=== PATIENT | male | born 1970 | race Two or more races ===

== ENCOUNTER 2020-12-15 23:37 | Inpatient (IN) | payer SELFPAY ==
[~2020-12-15] VITALS: Ht 167.6 cm; Wt 80.9 kg
[2020-12-16] MEDS ORDERED: ONDANSETRON HCL 4MG/2ML INJ IV STA (00:11)
[2020-12-16] MEDS ORDERED: SODIUM CHLORIDE 0.9% 1,000 ML IV ONE (00:15)
[2020-12-16 00:28] LABS: HEMOGLOBIN. 15.6 g/dL (14.0-18.0); MEAN CORPUSCULAR VOLUME 96.5 fL (80.0-94.0); MEAN PLATELET VOLUME 7.1 fl (7.4-10.4); PLATELET 280 x1000/uL (130-400); RED BLOOD CELL COUNT 4.86 mill/uL (4.7-6.1); RED CELL DISTRIBUTION WIDTH 13.1 % (11.6-14.6)
[2020-12-16 00:35] LABS: PROTHROMBIN TIME 10.7 sec (9.6-11.0)
[2020-12-16 00:40] LABS: CHLORIDE 109 mEq/L (98-107)
[2020-12-16 00:44] LABS: ETHANOL BLOOD < 10 mg/dL
[2020-12-16 00:48] LABS: BG BASE EXCESS -11.1 mmol/L (-2.0-2.0); BG CARBOXYHEMOGLOBIN 0.4 % (0.5-1.5); BG DEOXYHEMOGLOBIN 15.9 % (0.0-5.0); BG FRACTION INSPIRED OXYGEN 44; BG HCO3 ACT 20.3 mmol/L (22.0-26.0); BG METHEMOGLOBIN 0.4 % (0.0-1.5); BG OXYHEMOGLOBIN 83.3 % (94.0-97.0); BG PCO2 69.9 mmHg (35.0-45.0); BG PH 7.081 (7.350-7.450); BG SAMPLE SITE RIGHT RADIAL; BG TOTAL HEMOGLOBIN 16.5 g/dL (12.0-18.0); BG VENT MODE NASAL CANNULA
[2020-12-16] MEDS ORDERED: NALOXONE HCL 1 MG/ML 2ML VIAL IV ONE (01:00)
[2020-12-16 01:10] LABS: CLARITY URINE CLEAR (CLEAR); COLOR URINE YELLOW (YELLOW); KETONES URINE NEGATIVE (NEGATIVE); LEUKOCYTE ESTERASE URINE NEGATIVE (NEGATIVE); NITRITE URINE NEGATIVE (NEGATIVE); OCCULT BLOOD URINE 1+ (NEGATIVE); PH URINE 6.5 (4.5-8.0); PROTEIN URINE 2+ (NEGATIVE); SPECIFIC GRAVITY URINE 1.016 (1.005-1.030); UROBILINOGEN URINE 0.2 E.U./dL (0.2-1.0)
[2020-12-16 01:23] LABS: *AMPHETAMINES SCREEN URINE PRESUMTIVE POSITIVE (NEGATIVE); *BARBITURATES SCREEN URINE NEGATIVE (NEGATIVE); *BENZODIAZEPINES SCREEN URINE NEGATIVE (NEGATIVE); *COCAINE SCREEN URINE NEGATIVE (NEGATIVE)
[2020-12-16 01:24] LABS: CANNABINOID URINE SCREEN NEGATIVE (NEGATIVE); METHADONE URINE SCREEN NEGATIVE (NEGATIVE); OPIATES URINE SCREEN NEGATIVE (NEGATIVE); PHENCYCLIDINE URINE SCREEN NEGATIVE (NEGATIVE)
[2020-12-16 04:14] LABS: PLATELET ESTIMATE NORMAL
[2020-12-16] MEDS ORDERED: ACETAMINOPHEN 325MG TABLET PO PRN ×2 (07:15)
[2020-12-16] MEDS ORDERED: MAGNESIUM/ALUMINUM HYDROXIDE/SIMETHICONE 30ML UDC PO PRN (07:15)
[2020-12-16] MEDS ORDERED: ACETAMINOPHEN 650MG SUPP PR PRN ×2 (07:15)
[2020-12-16] MEDS ORDERED: ACETAMINOPHEN 650MG/20.3ML UDC GT PRN ×2 (07:15)
[2020-12-16] MEDS ORDERED: CLONIDINE 0.1MG TABLET PO PRN (07:15)
[2020-12-16] MEDS ORDERED: GUAIFENESIN 200MG/10ML SUGAR FREE UDC PO PRN (07:15)
[2020-12-16] MEDS ORDERED: NA PHOS,M-B/NA PHOS,DI-BA ENEMA 118ML PR PRN (07:15)
[2020-12-16] MEDS ORDERED: IPRATROPIUM/ALBUTEROL 0.5-3(2.5)MG/3ML NEB HHN PRN (07:15)
[2020-12-16] MEDS ORDERED: DEXTROSE 50% WATER 50ML SYRINGE IV PRN (07:30)
[2020-12-16 08:00] VITALS: BP 100/70
[2020-12-16] MEDS: BLOOD SUGAR DIAGNOSTIC STRIP TEST SCH ×4 (08:01→21:00)
[2020-12-16] MEDS: INSULIN LISPRO 100 UNITS/ML SUBCUT SCH ×4 (08:01→21:00)
[2020-12-16] MEDS ORDERED: VANCOMYCIN 1 G PREMIX 200 ML IV SCH (09:00)
[2020-12-16 10:00] VITALS: BP 99/68
[2020-12-16] MEDS: SODIUM CHLORIDE 0.9% 1,000 ML IV SCH ×2 (10:10→20:35)
[2020-12-16] MEDS: LEVOFLOXACIN 500MG PREMIX 100 ML IV SCH (10:11)
[2020-12-16 11:36] LABS: BG BASE EXCESS -5.3 mmol/L (-2.0-2.0); BG CARBOXYHEMOGLOBIN 0.7 % (0.5-1.5); BG DEOXYHEMOGLOBIN 3.9 % (0.0-5.0); BG HCO3 ACT 20.6 mmol/L (22.0-26.0); BG METHEMOGLOBIN 0.2 % (0.0-1.5); BG OXYGEN SATURATION 96.1 % (92.0-98.5); BG OXYHEMOGLOBIN 95.2 % (94.0-97.0); BG PCO2 41.4 mmHg (35.0-45.0); BG PH 7.314 (7.350-7.450); BG PO2 83.9 mmHg (75.0-100.0); BG TOTAL HEMOGLOBIN 14.4 g/dL (12.0-18.0); BG VENT MODE MASK - NRB
[2020-12-16 12:00] VITALS: BP 96/66
[2020-12-16] MEDS: METRONIDAZOLE 500 MG PREMIX 100 ML IV SCH ×2 (15:44→22:07)
[2020-12-16 16:00] VITALS: BP 113/72
[2020-12-16 16:19] LABS: CREATINE KINASE MB FRACTION 47.4 ng/mL (0.5-3.6)
[2020-12-16] MEDS ORDERED: INFLUENZA VACCINE 05/PF 0.5 ML VIAL IM ONE (19:30)
[2020-12-16] MEDS ORDERED: PNEUMOCOCCAL 23-VAL P-SAC VAC 0.5 ML IM ONE (19:30)
[2020-12-16 19:36] LABS: HEMOGLOBIN. 13.3 g/dL (14.0-18.0); MEAN CORPUSCULAR HEMOGLOBIN 32.6 pg (28.0-32.0); MEAN CORPUSCULAR VOLUME 93.2 fL (80.0-94.0); MEAN PLATELET VOLUME 6.8 fl (7.4-10.4); PLATELET 159 x1000/uL (130-400); RED BLOOD CELL COUNT 4.08 mill/uL (4.7-6.1); RED CELL DISTRIBUTION WIDTH 12.9 % (11.6-14.6)
[2020-12-16 20:00] VITALS: BP 120/64
[2020-12-16 20:05] LABS: CHLORIDE 107 mEq/L (98-107)
[2020-12-16 20:18] LABS: PLATELET ESTIMATE NORMAL
[2020-12-16] MEDS ORDERED: POTASSIUM CHLORIDE 20MEQ TABLET SR PO NR (20:30)
[2020-12-16] MEDS: ENOXAPARIN 80MG/0.8ML SYR SUBCUT SCH (22:08)
[2020-12-16 23:48] VITALS: BP 103/60
[2020-12-17 00:33] LABS: CREATINE KINASE MB FRACTION 38.5 ng/mL (0.5-3.6)
[2020-12-17 04:00] VITALS: BP 100/63
[2020-12-17 06:12] LABS: CHLORIDE 108 mEq/L (98-107)
[2020-12-17] MEDS: METRONIDAZOLE 500 MG PREMIX 100 ML IV SCH (06:20)
[2020-12-17 06:22] LABS: LDL CHOLESTEROL 69 mg/dL (5-100)
[2020-12-17 06:25] LABS: HDL CHOLESTEROL 64 mg/dL (40-59)
[2020-12-17 06:42] LABS: HEMATOCRIT. 38.8 % (42.0-52.0); HEMOGLOBIN. 13.2 g/dL (14.0-18.0); MEAN CORPUSCULAR VOLUME 93.6 fL (80.0-94.0); MEAN PLATELET VOLUME 7.3 fl (7.4-10.4); PLATELET 150 x1000/uL (130-400); RED BLOOD CELL COUNT 4.14 mill/uL (4.7-6.1); RED CELL DISTRIBUTION WIDTH 12.7 % (11.6-14.6)
[2020-12-17] MEDS: BLOOD SUGAR DIAGNOSTIC STRIP TEST SCH ×2 (07:49→12:20)
[2020-12-17] MEDS: INSULIN LISPRO 100 UNITS/ML SUBCUT SCH ×2 (07:49→12:25)
[2020-12-17 08:00] VITALS: BP 106/56
[2020-12-17] MEDS: SODIUM CHLORIDE 0.9% 1,000 ML IV SCH (08:25)
[2020-12-17] MEDS: LEVOFLOXACIN 500MG PREMIX 100 ML IV SCH (08:26)
[2020-12-17] MEDS: ENOXAPARIN 80MG/0.8ML SYR SUBCUT SCH (08:27)
[2020-12-17] MEDS: ASPIRIN 81MG TABLET PO SCH ×2 (09:00→12:08)
[2020-12-17 12:00] VITALS: BP 141/85
[2020-12-17 12:46] LABS: PLATELET ESTIMATE NORMAL
== END 2020-12-17 14:57 | disposition left against medical advice (07) | DRG 720 ==
LOC: ER 23:37 → EDBD 23:37 → 6WST 12-16 01:47 → ENRESERV 12-16 07:28
PROVIDERS: ADMIT Family Medicine; ATTEND Family Medicine
DX: A41.9 Sepsis, unspecified organism (principal); E72.20 Disorder of urea cycle metabolism, unspecified; E87.6 Hypokalemia; J69.0 Pneumonitis due to inhalation of food and vomit; J96.01 Acute respiratory failure with hypoxia; F19.10 Other psychoactive substance abuse, uncomplicated; R74.01 Elevation of levels of liver transaminase levels; E11.65 Type 2 diabetes mellitus with hyperglycemia; T43.625A Adverse effect of amphetamines, initial encounter; G92 Toxic encephalopathy; Y92.89 Other specified places as the place of occurrence of the external cause; Z59.0 Homelessness; Z20.822 Contact with and (suspected) exposure to COVID-19; Z53.29 Procedure and treatment not carried out because of patient's decision for other reasons
CPT/HCPCS: 36415; 36600; 71045; 76700; 80053; 80061; 80305; 80307; 80320; 80329; 81003; 82140; 82375; 82550; 82553; 82805; 82962; 83036; 83605; 83880; 84145; 84484; 85025; 85379; 87070; 87426; 93005; 97161; 99291; J1650; J1956; J2310; J2405; J3370; J3490; J7030; G0480